=== PATIENT | male | born 1980 | race Caucasian/White ===

== ENCOUNTER 2016-11-22 00:26 | Emergency (ER) | payer OTHER ==
[2016-11-22 00:40] VITALS: BP 138/83; PULSE 75; TEMP 97.6; BMI 30.4
[2016-11-22] MEDS ORDERED: KETOROLAC TROMETHAMINE 30 MG/1 ML VIAL IVPUSH ONE (00:51)
[2016-11-22] MEDS ORDERED: SODIUM CHLORIDE 1,000 ML IV STA (00:51)
--- NOTE | 2016-11-22 00:52 | PDOC ---
History of Present Illness - General History Source: Patient Exam Limitations: No Limitations - History of Present Illness Initial Comments: 11/22/16 01:53 The patient is a 35 year old male, with no significant past medical history, who presents to the emergency department with left testicular pain and left lower extremity pain since yesterday but worsening today. The patient denies any trauma to the area. The patient denies fever, chills, nausea, vomiting, abdominal pain, flank pain or any dysuria. The patient's primary language is Khmer. Allergies: None reported. Past Surgical History: None reported. Social History: Non smoker. Denies alcohol or drug use. <Bailey Maciel - Last Filed: 11/22/16 01:53> - General History Source: Patient Exam Limitations: No Limitations <Pan Fournier - Last Filed: 11/22/16 02:10> - General Chief Complaint: Pain Stated Complaint: RT HIP PAIN Time Seen by Provider: 11/22/16 00:46 Past History <Bailey Maciel - Last Filed: 11/22/16 01:53> - Psycho/Social/Smoking Cessation Hx Suicidal Ideation: No Smoking History: Never smoked Number of Cigarettes Smoked Daily: 0 Information on smoking cessation initiated: No Hx Alcohol Use: No Drug/Substance Use Hx: No <Pan Fournier - Last Filed: 11/22/16 02:10> - Past Medical History Allergies/Adverse Reactions: Allergies Allergy/AdvReac Type Severity Reaction Status Date / Time No Known Allergies Allergy Verified 11/22/16 00:58 Home Medications: Ambulatory Orders Cephalexin [Keflex] 500 mg PO BID #14 capsule 11/22/16 Naproxen [Naprosyn -] 500 mg PO BID PRN #14 tablet 11/22/16 Review of Systems - Review of Systems Able to Perform ROS?: Yes Comments:: 11/22/16 01:48 GENERAL/CONSTITUTIONAL: No fever or chills. No weakness. HEAD, EYES, EARS, NOSE AND THROAT: No change in vision. No ear pain or discharge. No sore throat. CARDIOVASCULAR: No chest pain or shortness of breath. RESPIRATORY: No cough, wheezing, or hemoptysis. GASTROINTESTINAL: No nausea, vomiting, diarrhea or constipation. GENITOURINARY: +Left testicular pain. No dysuria, frequency, or change in urination. MUSCULOSKELETAL: +Left lower extremity pain. No muscle swelling or pain. No neck or back pain. SKIN: No rash. NEUROLOGIC: No headache, vertigo, loss of consciousness, or change in strength/ sensation. ENDOCRINE: No increased thirst. No abnormal weight change. HEMATOLOGIC/LYMPHATIC: No anemia, easy bleeding, or history of blood clots. ALLERGIC/IMMUNOLOGIC: No hives or skin allergy. <Bailey Maciel - Last Filed: 11/22/16 01:53> *Physical Exam - Vital Signs Last Vital Signs Temp Pulse Resp BP Pulse Ox 97.6 F 75 14 138/83 98 11/22/16 00:32 11/22/16 00:32 11/22/16 00:32 11/22/16 00:32 11/22/16 00:32 - Physical Exam Comments: 11/22/16 01:40 GENERAL: Awake, alert, and fully oriented, in no acute distress. HEAD: No signs of trauma. EYES: PERRLA, EOMI, sclera anicteric, conjunctiva clear. ENT: Auricles normal inspection, hearing grossly normal, nares patent, oropharynx clear without exudates. Moist mucosa. NECK: Normal ROM, supple, no lymphadenopathy, JVD, or masses. LUNGS: Breath sounds equal, clear to auscultation bilaterally. No wheezes, and no crackles. HEART: Regular rate and rhythm, normal S1 and S2, no murmurs, rubs or gallops. ABDOMEN: Soft, nontender, normoactive bowel sounds. No guarding, no rebound. No masses. GENITOURINARY: Uncircumsized penis. No rash, no drainage, no discharge. Mild tenderness to the left testicle near the epididymis. Vertical lie intact. Intact cremasteric reflex. MUSCULOSKELETAL: No CVA tenderness. EXTREMITIES: Normal range of motion, no edema. No clubbing or cyanosis. No cords, erythema, or tenderness. NEUROLOGICAL: Cranial nerves II through XII intact. Normal speech, normal gait. SKIN: Warm, dry, normal turgor, no rashes or lesions noted. <Bailey Maciel - Last Filed: 11/22/16 01:53> - Vital Signs Last Vital Signs Temp Pulse Resp BP Pulse Ox 97.6 F 75 14 138/83 98 11/22/16 00:32 02/24/17 00:32 11/22/16 00:32 11/22/16 00:32 11/22/16 00:32 <Pan Fournier - Last Filed: 11/22/16 02:10> ED Treatment Course - LABORATORY CBC & Chemistry Diagram: 11/22/16 01:00 11/22/16 01:00 - Medications Given in the ED: ED Medications Discontinued Medications Generic Name Dose Route Start Last Admin Trade Name Jeremi PRN Reason Stop Dose Admin Ketorolac Tromethamine 30 mg 11/22/16 00:51 11/22/16 01:13 Toradol Injection - IVPUSH 11/22/16 00:52 30 mg ONCE ONE Administration <Bailey Maciel - Last Filed: 11/22/16 01:53> - LABORATORY CBC & Chemistry Diagram: 11/22/16 01:00 11/22/16 01:00 - RADIOLOGY Radiology Studies Ordered: Category Date Time Status DUPLEX VASCUL US-1 LEG [US] Stat Ultrasound 11/22/16 00:51 Ordered SCROTUM AND CONTENTS US [US] Stat Ultrasound 11/22/16 00:51 Ordered <Pan Fournier - Last Filed: 11/22/16 02:10> Medical Decision Making - Medical Decision Making 11/22/16 00:57 A portion of this note was documented by scribe services under my direction. I have reviewed the details of the note, within reason, and agree with the documentation with the following case summary and management plan written by me. Patient treated in the ED. Nursing notes are reviewed and incorporated into the medical decision-making. Vital signs reviewed. Peripheral IV access obtained by the nurse, laboratory studies are drawn and sent, reviewed and interpreted by myself. Vital Signs Temp Pulse Resp BP Pulse Ox 97.6 F 75 14 138/83 98 11/22/16 00:32 11/22/16 00:32 11/22/16 00:32 11/22/16 00:32 11/22/16 00:32 35-year-old male with no past medical history presents to the ER for left testicular pain and left lower extremity pain. Patient reports that the pain had occurred since yesterday but worsened today. Stated that he feels tenderness the left testicle but denies any dysuria. Denies fevers, chills, flank pain, abdominal pain. Patient essentially active with his only. Denies any anal intercourse. Last sex 2 days ago. Denies history of sexual transmitted disease. Patient has had similar incident a year ago and had a negative ultrasound but does not know what the diagnosis was at that time. Denies fevers, chills. I have very little suspicion for testicular torsion at this time. The differential here is epididymitis versus orchitis versus urinary tract infection. I do not suspect an orthopedic cause for the left leg pain and may be referred pain from the testicle. We'll obtain a left lotion be Doppler though unlikely to be DVT. We'll obtain labs, give IV fluids, check urinalysis and reassess. 11/22/16 01:55 CBC, BMP 11/22/16 01:00 11/22/16 01:00 CMP Sodium 140 mmol/L (136-145) 11/22/16 01:00 Potassium 4.3 mmol/L (3.5-5.1) 11/22/16 01:00 Chloride 103 mmol/L (98-107) 11/22/16 01:00 Carbon Dioxide 30 mmol/L (21-32) 11/22/16 01:00 Anion Gap 7 (8-16) L 11/22/16 01:00 BUN 11 mg/dL (7-18) 11/22/16 01:00 Creatinine 0.9 mg/dL (0.7-1.3) 11/22/16 01:00 Creat Clearance w eGFR > 60 (>60) 11/22/16 01:00 Random Glucose 96 mg/dL (74-106) 11/22/16 01:00 Calcium 8.6 mg/dL (8.5-10.1) 11/22/16 01:00 Total Bilirubin 0.5 mg/dL (0.2-1.0) 11/22/16 01:00 AST 30 U/L (15-37) 11/22/16 01:00 ALT 58 U/L (12-78) 11/22/16 01:00 Alkaline Phosphatase 68 U/L (45-117) 11/22/16 01:00 Total Protein 7.9 g/dl (6.4-8.2) 11/22/16 01:00 Albumin 4.1 g/dl (3.4-5.0) 11/22/16 01:00 LLE U/S negative for DVT. 11/22/16 01:56 Scrotal ultrasound: Normal appearance of both testis with normal vascular flow seen bilaterally. Epididymal cyst on the right. Otherwise normal appearance of both epididymides. There is however increased vascularity noted in both epididymides and small bilateral hydroceles. Epididymitis can have this appearance. Correlate for tenderness. 11/22/16 01:56 Will send UA. Will d/c with keflex and have patient follow up with urology. 11/22/16 01:57 Again, I suspect that the patient clinically has epidymitis. Return precautions given. I discussed the physical exam findings, ancillary test results and final diagnoses with the patient. I answered all of the patient's questions. The patient was satisfied with the care received and felt comfortable with the discharge plan and treatment plan. The patient will call their primary care physician within 24 hours to arrange follow-up and will return to the Emergency Department with any new, persistant or worsening symptoms. <Pan Fournier - Last Filed: 11/22/16 02:10> *DC/Admit/Observation/Transfer - Attestations Scribe Attestion: 11/22/16 01:20 Documentation prepared by Bailey Maciel, acting as medical surgical tech for Pan Fournier MD. <Bailey Maciel - Last Filed: 11/22/16 01:53> - Discharge Dispostion Admit: No <Pan Fournier - Last Filed: 11/22/16 02:10> Diagnosis at time of Disposition: Epididymitis - Discharge Dispostion Disposition: HOME Condition at time of disposition: Stable - Prescriptions Prescriptions: Cephalexin [Keflex] 500 mg PO BID #14 capsule Naproxen [Naprosyn -] 500 mg PO BID PRN #14 tablet PRN Reason: Pain - Referrals Referrals: Mejia Bravo MD [Staff Physician] - - Patient Instructions Printed Discharge Instructions: DI for Epididymitis Additional Instructions: Take 500 mg naproxen every 12 hours as needed for pain. Take the antibiotics (keflex) every 12 hours for 1 week. Please follow up with your doctor and urologist. Drink plenty of fluids and rest. It may take several days before your symptoms improve. If you have uncontrollable pain, please call your doctor or return to the ER for further evaluation. Print Language: GAMBIAN
[2016-11-22] MEDS ORDERED: KETOROLAC TROMETHAMINE 30 MG/1 ML VIAL ONE (01:03)
[2016-11-22 01:18] LABS: BASOPHIL 0.6 % (0-2.0); EOSINOPHIL 3.8 % (0-4.5); MCH 29.3 pg (25.7-33.7); MCHC 34.6 g/dl (32.0-35.9); MEAN CELL VOLUME 84.7 fl (80-96); MEAN PLT VOLUME 9.5 fl (7.5-11.1); NEUTROPHILS 49.2 % (42.8-82.8); PLATELET COUNT 213 K/MM3 (134-434); RDW 14.1 % (11.9-15.9); WHITE BLOOD COUNT 8.6 K/mm3 (4.0-10.0)
[2016-11-22 01:44] LABS: ALBUMIN 4.1 g/dl (3.4-5.0); ALK PHOS 68 U/L (45-117); ANION GAP 7 (8-16); BILIRUBIN,TOTAL 0.5 mg/dL (0.2-1.0); CALCIUM 8.6 mg/dL (8.5-10.1); CO2 30 mmol/L (21-32); CREATININE 0.9 mg/dL (0.7-1.3); GLUCOSE,RANDOM 96 mg/dL (74-106); SGOT/AST 30 U/L (15-37); SGPT/ALT 58 U/L (12-78); TOT PROT 7.9 g/dl (6.4-8.2)
[2016-11-22] MEDS ORDERED: CEPHALEXIN MONOHYDRATE 500 MG CAPSULE (UD) PO ONE (02:07)
[2016-11-22] MEDS ORDERED: CEPHALEXIN MONOHYDRATE 250 MG CAPSULE (FP) ONE (02:10)
[2016-11-22 02:15] LABS: URINE APPEARANCE CLEAR; URINE BILIRUBIN NEGATIVE (NEGATIVE); URINE BLOOD NEGATIVE (NEGATIVE); URINE COLOR COLORLESS; URINE GLUCOSE (UA) NEGATIVE (NEGATIVE); URINE KETONE NEGATIVE (NEGATIVE); URINE LEUK ESTERASE NEGATIVE (NEGATIVE); URINE NITRITE NEGATIVE (NEGATIVE); URINE PROTEIN NEGATIVE (NEGATIVE); URINE UROBILINOGEN NEGATIVE E.U./dl (0.2-1.0)
== END 2016-11-22 03:49 | disposition home or self-care (01) ==
LOC: JER 00:26
PROC: 3E0333Z Introduction of Anti-inflammatory into Peripheral Vein, Percutaneous Approach (ICD-10-PCS; principal; 2016-11-22)
DX: N45.1 Epididymitis (principal)
CPT/HCPCS: 36415; 76870-TC; 80053; 81003; 85025; 87086; 93971-TC; 99281-25; 99282-25